=== PATIENT | male | born 1975 | race Two or more races ===

== ENCOUNTER → 2017-10-19 | Outpatient (REF) | payer OTHER ==
[2017-10-19 19:37] LABS: BACTERIA, URINE SMALL AMOUNT; HYALINE CAST, URINE NONE SEEN /lpf (0-1); MICROSCOPIC EXAM PERFORMED; RBC, URINE 30-40 /hpf (0-3); SQUAMOUS EPITHELIAL CELL URINE SMALL AMOUNT /hpf (SMALL AMT)
== END ==
LOC: M LAB REF 18:00
PROVIDERS: ATTEND Internal Medicine Nephrology
DX: N18.2 Chronic kidney disease, stage 2 (mild) (principal); Q61.2 Polycystic kidney, adult type

== ENCOUNTER → 2017-11-02 | Outpatient (CLI) | payer OTHER | LOC: M RAD 09:21 | DX: Q61.2 Polycystic kidney, adult type (principal); Q44.6 Cystic disease of liver; K76.89 Other specified diseases of liver | CPT/HCPCS: 76700 ==

== ENCOUNTER → 2017-11-27 | Outpatient (CLI) | payer OTHER ==
[2017-11-27 11:30] LABS: FREE T4 1.13 NG/DL (0.76-1.46)
== END ==
LOC: M LAB 10:28
DX: E89.0 Postprocedural hypothyroidism (principal)
CPT/HCPCS: 84443

== ENCOUNTER → 2018-01-26 | Outpatient (CLI) | payer OTHER | LOC: M RAD 07:15 | DX: M79.604 Pain in right leg (principal); M79.605 Pain in left leg; E89.0 Postprocedural hypothyroidism | CPT/HCPCS: 78315 ==

== ENCOUNTER → 2018-01-26 | Outpatient (CLI) | payer OTHER ==
[2018-01-26 12:19] LABS: FREE T4 0.62 NG/DL (0.76-1.46)
== END ==
LOC: M LAB 10:12
DX: E89.0 Postprocedural hypothyroidism (principal)

== ENCOUNTER → 2018-04-06 | Outpatient (CLI) | payer OTHER ==
[2018-04-06 14:55] LABS: FREE T4 1.18 NG/DL (0.76-1.46)
== END ==
LOC: M LAB 13:37
DX: E89.0 Postprocedural hypothyroidism (principal)
CPT/HCPCS: 84443

== ENCOUNTER → 2018-05-25 | Outpatient (REF) | payer OTHER ==
[2018-05-25 13:39] LABS: TOTAL PROTEIN,RANDOM URINE 15.5 MG/DL (0.0-12.0)
== END ==
LOC: M LAB REF 12:42
DX: Q61.2 Polycystic kidney, adult type (principal); N18.2 Chronic kidney disease, stage 2 (mild)

== ENCOUNTER → 2018-05-28 | Outpatient (CLI) | payer OTHER ==
[~2018-05-28] MED LIST: ISOVUE-370 76% 100ML VIAL (Q9967) As Ordered
== END ==
LOC: M RAD 15:07
DX: R91.8 Other nonspecific abnormal finding of lung field (principal); Q61.3 Polycystic kidney, unspecified
CPT/HCPCS: Q9967

== ENCOUNTER 2018-06-05 10:53 | Day surgery (SDC) | payer OTHER ==
[~2018-06-05 10:53] MED LIST changes: -ISOVUE-370 76% 100ML VIAL (Q9967) As Ordered; +LIDOCAINE 2% INJ 100 MG/5 ML SDV (FOR ANES.) As Ordered; +METOCLOPRAMIDE INJ 10MG/2ML VIAL (J2765) As Ordered; +MIDAZOLAM INJ 2 MG/2 ML VIAL (J2250) As Ordered; +ONDANSETRON 4MG/2ML VIAL (J2405) As Ordered; +PROPOFOL 200 MG/20 ML VIAL As Ordered; +ROCURONIUM BROMIDE 50 MG/5 ML VIAL As Ordered; +dexameTHASONE 4 MG/ML 1ML VIAL (J1100) As Ordered; +fentaNYL 100 MCG/2 ML INJECTION (J3010) As Ordered
[2018-06-05] MEDS: CETACAINE SPRAY 5GM As Ordered (12:51)
[2018-06-05] MEDS: LIDOCAINE 1% SDV INJ 30 ML VIAL As Ordered (13:49)
[2018-06-05] MEDS: LIDOCAINE 4% TOPICAL SOLN 50 ML BTL As Ordered (13:49)
[2018-06-05] MEDS: EPINEPHrine 1MG/10ML SYRINGE 1.5IN As Ordered (13:49)
[2018-06-05] MEDS: LIDOCAINE VISCOUS 2% SOLN 15ML UDC As Ordered (13:49)
[2018-06-05] MEDS: THROMBIN SOLN 5,000 UNITS VIAL As Ordered (13:49)
[2018-06-05] MEDS ORDERED: NORCO, ANEXSIA 5/325MG TABLET (HYDROcodone/ACETAMINOPHEN) PO (14:15)
[2018-06-05] MEDS ORDERED: LR 1,000 ML IV (14:15)
[2018-06-05] MEDS ORDERED: ONDANSETRON 4MG/2ML VIAL (J2405) IV (14:15)
[2018-06-05] MEDS ORDERED: fentaNYL 100 MCG/2 ML INJECTION (J3010) IV (14:15)
[2018-06-05] MEDS: ERYTHROMYCIN OPHTH OINT OD (15:45)
[2018-06-05 18:03] LABS: APPEARANCE CLOUDY (CLEAR); BAL DIFF IF INDICATED? NO (NO); BAL WBC 6.666 CELLS/uL (0-10); COLOR RED (COLORLESS); DILUTION FACTOR 1; SOURCE RIGHT UPPER LOBE; WBC BAL COUNTED 6
[2018-06-06] MEDS ORDERED: LR 1,000 ML IV (06:00)
== END 2018-06-05 15:40 | disposition home or self-care (01) ==
LOC: M SDC 10:53
DX: R91.1 Solitary pulmonary nodule (principal); G47.30 Sleep apnea, unspecified; E03.9 Hypothyroidism, unspecified; K21.9 Gastro-esophageal reflux disease without esophagitis; I10 Essential (primary) hypertension; Z79.899 Other long term (current) drug therapy
CPT/HCPCS: 31624

== ENCOUNTER → 2018-09-03 | Outpatient (CLI) | payer OTHER ==
[2018-09-03 17:11] LABS: CREATININE FOR GFR 1.29 MG/DL (0.70-1.30); GLOMERULAR FILTRATION RATE > 60.0 (>60)
[2018-09-03 17:11] LABS: BLOOD UREA NITROGEN 16 MG/DL (7-18)
== END ==
LOC: M LAB 16:13
DX: R91.8 Other nonspecific abnormal finding of lung field (principal)
CPT/HCPCS: 82565

== ENCOUNTER → 2018-09-05 | Outpatient (CLI) | payer OTHER ==
[~2018-09-05] MED LIST changes: +ISOVUE-370 76% 100ML VIAL (Q9967) As Ordered; -LIDOCAINE 2% INJ 100 MG/5 ML SDV (FOR ANES.) As Ordered; -METOCLOPRAMIDE INJ 10MG/2ML VIAL (J2765) As Ordered; -MIDAZOLAM INJ 2 MG/2 ML VIAL (J2250) As Ordered; -ONDANSETRON 4MG/2ML VIAL (J2405) As Ordered; -PROPOFOL 200 MG/20 ML VIAL As Ordered; -ROCURONIUM BROMIDE 50 MG/5 ML VIAL As Ordered; -dexameTHASONE 4 MG/ML 1ML VIAL (J1100) As Ordered; -fentaNYL 100 MCG/2 ML INJECTION (J3010) As Ordered
== END ==
LOC: M RAD 08:34
DX: R91.8 Other nonspecific abnormal finding of lung field (principal)

== ENCOUNTER 2019-08-11 03:16 | Emergency (ER) | payer OTHER ==
[~2019-08-11] VITALS: Ht 180.3 cm; Wt 97.7 kg
[~2019-08-11 03:16] MED LIST changes: +CITA20TA6 PO; -ISOVUE-370 76% 100ML VIAL (Q9967) As Ordered; +LEVO200T4 PO; +LEVO50TA5 PO; +MELA3TAB49 PO; +PROP80TA PO; +TELM1TAB PO; +VITA100067 PO
[2019-08-11] MEDS ORDERED: PREDOPD OD (03:25)
[2019-08-11] MEDS ORDERED: TRAV04OPD OD (03:25)
[2019-08-11] MEDS ORDERED: ACUV0.45 OP (03:25)
[2019-08-11] MEDS ORDERED: CIPRODEX AD (05:09)
[2019-08-11] MEDS ORDERED: CIPRODEX OTIC SUSP 7.5ML AD ONE (05:15)
[2019-08-11 05:41] VITALS: BP 150/85
== END 2019-08-11 05:52 | disposition home or self-care (01) ==
LOC: M ED 03:16
DX: H72.2X1 Other marginal perforations of tympanic membrane, right ear (principal); F17.200 Nicotine dependence, unspecified, uncomplicated; I10 Essential (primary) hypertension; G47.30 Sleep apnea, unspecified; Z88.6 Allergy status to analgesic agent; Z79.899 Other long term (current) drug therapy

== ENCOUNTER → 2019-11-08 | Outpatient (CLI) | payer OTHER ==
[~2019-11-08] MED LIST changes: +ACUV0.45 OP; +CIPRODEX AD; +ISOVUE-370 76% 100ML VIAL (Q9967) As Ordered ONE; +PREDOPD OD; +TRAV04OPD OD
--- NOTE | 2019-11-08 16:06 | REP ---
Clinical: Follow up abnormal findings. Technique: Axial contrast enhanced images from the thoracic inlet to the upper abdomen using 100 ml Isovue 370 intravenous contrast material with coronal and sagittal re-formations. Comparison: 09/05/2018. Findings: The ill-defined cavitary lesion in the right upper lobe has increased in size and demonstrates an irregular multi nodular contour with small satellite nodules and subtle surrounding air space disease. Mediastinal lymph nodes measure up to 16 mm. Findings are consistent with active disease including malignancy and infection. The bilateral lung jean are otherwise well aerated and clear. No effusion. No pneumothorax. Mediastinum demonstrates normal thoracic aorta, pulmonary vasculature and heart/pericardium. Surrounding musculoskeletal structures are intact. Limited upper abdomen with known polycystic kidney disease including enlarged polycystic changes to the liver. Impression: The cavitary lesion in the right upper lobe shows significant abnormal changes as described above. Differential diagnosis again includes malignancy and active infection including fungal disease. Electronically Signed by Georges Guadalupe MD 11/08/2019 03:57 P
== END ==
LOC: M RAD 14:59
PROVIDERS: ATTEND Internal Medicine Pulmonary Disease
DX: R91.8 Other nonspecific abnormal finding of lung field (principal)
CPT/HCPCS: 71260; Q9967

== ENCOUNTER → 2019-12-17 | Outpatient (CLI) | payer OTHER ==
[~2019-12-17] MED LIST changes: -ISOVUE-370 76% 100ML VIAL (Q9967) As Ordered ONE; -TELM1TAB PO; +TELM1TAB35 PO
--- NOTE | 2019-12-17 13:28 | REP ---
PET/CT: History: Diagnosing lung cancer. Right upper lobe abnormality. Comparisons: Comparison chest CT November 08, 2019. Comparison CT is also reviewed from September 05, 2018. TECHNIQUE: 50 minutes following the intravenous injection of a 7.05 mCi dose of F-18 FDG, three-dimensional PET scintigraphy is acquired from the skull base to the proximal thighs. Triplanar noncontrast CT scanning is acquired through the same anatomic range for attenuation correction, and image registration with scan parameters optimized to minimize radiation exposure to the patient. PET scintigraphy and CT datasets were fused and displayed on a workstation with multiplanar and projection display capability. PET/CT Findings: There is fairly prominent uptake in the oropharyngeal soft tissues and in the parotid gland soft tissues bilaterally. This can be normal variant. Head and neck soft tissues are otherwise unremarkable. The complex pulmonary parenchymal opacity in the posterior aspect of the right upper lobe shows hypermetabolic uptake predominantly in an annular circumferential pattern. Maximum standard uptake value is 8.97. No other pulmonary parenchymal hypermetabolic uptake is appreciated. There is however hypermetabolic bib uptake in the right hilus, maximum standard uptake value 5.14. There is precarinal adenopathy which is hypermetabolic as well, maximum standard uptake value 9.42. There is a small hypermetabolic bib focus in the superior mediastinum to the right of midline with maximum standard uptake value of 4.52. There is an equivocal bib focus of the right side of the thoracic inlet. In the abdomen and pelvis, there is evidence of polycystic kidney disease with multiple cysts in the kidneys and liver. No abnormal hypermetabolic uptake is seen within the liver or the kidneys. Normal splenic uptake is seen. Normal gastrointestinal uptake is observed. No abnormal adrenal uptake is observed. No abnormal uptake focus in the abdomen or pelvis. Impression: The complex soft tissue mass in the right upper lobe is hypermetabolic. Hypermetabolic adenopathy is seen in the right hilus and at several locations in the right mediastinum. Malignancy cannot be excluded. Chronic granulomatous disease is a possibility as well. Electronically Signed by Larry Perez MD 12/17/2019 07:59 P
== END ==
LOC: M PLARAD 07:39
PROVIDERS: ATTEND Internal Medicine Pulmonary Disease
DX: R59.0 Localized enlarged lymph nodes (principal); R91.8 Other nonspecific abnormal finding of lung field
CPT/HCPCS: 78815; A9552

== ENCOUNTER → 2019-12-20 | Outpatient (REF) | payer OTHER | LOC: M SFHCLERA 13:22 | PROVIDERS: ATTEND Nurse Practitioner Family | DX: R50.9 Fever, unspecified (principal) ==

== ENCOUNTER 2020-01-06 06:11 | Day surgery (SDC) | payer OTHER ==
[~2020-01-06] VITALS: Ht 175.3 cm; Wt 108.0 kg
[~2020-01-06 06:11] MED LIST changes: +BUSP15TA90 PO; +LEVO175T2 PO; +LEXA1TAB PO; +MELATAB2 PO; +PRAZ1CAP PO
[2020-01-06] MEDS ORDERED: MIDAZOLAM INJ 2 MG/2 ML VIAL (J2250) As Ordered ONE (06:41)
[2020-01-06] MEDS ORDERED: fentaNYL 250 MCG/5 ML INJECTION (J3010) As Ordered ONE (06:41)
[2020-01-06] MEDS ORDERED: ACETAMINOPHEN 1000MG 100ML IV BTL (OFIRMEV) (J0131 PER 10MG) As Ordered ONE (06:41)
[2020-01-06] MEDS ORDERED: SUGAMMADEX SODIUM 500 MG/5 ML VIAL (BRIDION) As Ordered ONE (06:42)
[2020-01-06] MEDS ORDERED: ROCURONIUM BROMIDE 50 MG/5 ML VIAL As Ordered ONE ×2 (06:42→08:16)
[2020-01-06] MEDS ORDERED: LIDOCAINE 2% INJ 100 MG/5 ML SDV (FOR ANES.) As Ordered ONE (06:42)
[2020-01-06] MEDS ORDERED: dexameTHASONE 4 MG/ML 1ML VIAL (J1100) As Ordered ONE ×2 (06:42→07:49)
[2020-01-06] MEDS ORDERED: ePHEDrine SULFATE 25 MG/5 ML(5MG/ML) SYRINGE As Ordered ONE (06:42)
[2020-01-06] MEDS ORDERED: propofoL 200 MG/20 ML VIAL As Ordered ONE (06:42)
[2020-01-06] MEDS ORDERED: ONDANSETRON 4MG/2ML VIAL (J2405) As Ordered ONE (06:42)
[2020-01-06] MEDS ORDERED: PHENYLephrine HCL 500 MCG/5 ML (100MCG/ML) SYRINGE (J2370) As Ordered ONE (06:42)
[2020-01-06 06:57] LABS: HEMATOCRIT 39.1 % (42.0-52.0); HEMOGLOBIN 12.9 g/dl (13.5-17.5); MEAN CORPUSCULAR HEMOGLOBIN 30.4 pg (27.0-33.0); MEAN CORPUSCULAR VOLUME 92.2 fl (80.0-96.0); PLATELET COUNT, AUTOMATED 245 10^3/uL (150-450); RED BLOOD COUNT 4.24 10^6/uL (4.30-6.10); WHITE BLOOD COUNT 5.5 10^3/uL (4.0-10.0)
[2020-01-06] MEDS ORDERED: THROMBIN SOLN 20,000 UNITS KIT As Ordered ONE (07:14)
[2020-01-06] MEDS ORDERED: LIDOCAINE 1% SDV INJ 30 ML VIAL As Ordered ONE (07:14)
[2020-01-06] MEDS ORDERED: EPINEPHrine 1MG/ML INJ 30ML MD-VIAL As Ordered ONE (07:14)
[2020-01-06] MEDS ORDERED: LIDOCAINE VISCOUS 2% SOLN 15ML UDC As Ordered ONE (07:14)
[2020-01-06] MEDS ORDERED: LIDOCAINE 4% TOPICAL SOLN 50 ML BTL As Ordered ONE (07:14)
[2020-01-06] MEDS ORDERED: CETACAINE SPRAY 5GM As Ordered ONE (07:16)
[2020-01-06 07:28] LABS: BLOOD UREA NITROGEN 15 MG/DL (7-18); CALCIUM LEVEL 9.4 MG/DL (8.5-10.1); CARBON DIOXIDE LEVEL 31 MEQ/L (21-32); CHLORIDE LEVEL 106 MEQ/L (98-107); CREATININE FOR GFR 1.47 MG/DL (0.70-1.30); GLOMERULAR FILTRATION RATE > 60.0 (>60); GLUCOSE, FASTING 93 MG/DL (70-100); POTASSIUM SERUM 3.9 MEQ/L (3.5-5.1); SODIUM LEVEL 140 MEQ/L (136-145)
[2020-01-06] MEDS ORDERED: EPINEPHrine 1MG/10ML SYRINGE 1.5IN As Ordered ONE (07:34)
[2020-01-06] MEDS ORDERED: KETOROLAC 60 MG/2 ML VIAL (J1885) As Ordered ONE (07:49)
--- NOTE | 2020-01-06 09:23 | REP ---
Single view chest x-ray: Partial exam. History: Abnormal x-ray. 3 minutes 30 seconds of fluoroscopy time is reported. Findings: A single fluoroscopically obtained spot radiograph of the chest documents bronchoscopic catheter position. Electronically Signed by Larry Perez MD 01/06/2020 09:15 A
[2020-01-06] MEDS ORDERED: HYDROMORPHONE HCL 0.5 MG/ 0.5 ML SYRINGE (J1170 PER 1) IV PRN (09:45)
[2020-01-06] MEDS ORDERED: fentaNYL 100 MCG/2 ML INJECTION (J3010) IV PRN (09:45)
[2020-01-06] MEDS ORDERED: oxyCODONE 5MG TAB PO PRN (09:45)
[2020-01-06] MEDS ORDERED: ONDANSETRON 4MG/2ML VIAL (J2405) IV PRN (09:45)
[2020-01-06] MEDS ORDERED: LR 1,000 ML IV SCH (09:45)
[2020-01-06 10:05] VITALS: BP 129/82
--- NOTE | 2020-01-06 10:10 | REP ---
Portable chest x-ray: Single view. History: Status post bronchoscopy. Findings: There is no evidence of pneumothorax or hydrothorax. There is a vague opacity in the right perihilar region again noted. Impression: No complication is seen. Electronically Signed by Larry Perez MD 01/06/2020 10:01 A
[2020-01-06 11:00] LABS: COLOR PINK (COLORLESS); SOURCE BRON ALVEOLAR LAVAGE
[2020-01-06 11:01] LABS: APPEARANCE HAZY (CLEAR)
--- NOTE | 2020-01-06 21:25 | ECGEPIP ---
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
--- NOTE | 2020-01-07 09:15 | RO ---
DATE OF PROCEDURE: 01/06/2020 PREOPERATIVE DIAGNOSIS: Right upper lobe cavitary lung mass. POSTOPERATIVE DIAGNOSIS: Right upper lobe cavitary lung mass with no endobronchial disease appreciated. PROCEDURE PERFORMED: Fiberoptic bronchoscopy with navigational imaging for biopsy and endobronchial ultrasound for lymph node aspiration. SURGEON: Jordy Roy DO CHANGE NUMBER OPERATOR: ANESTHESIA: The findings included no endobronchial disease, mild prominence of mucus grubbs. DESCRIPTION OF PROCEDURE: The patient was seen and the procedure explained to the patient, as were all of the possible complications pertaining thereto, including but not limited to bleeding, infection, medication reaction, and lung collapse. An informed consent was obtained and placed in the chart. The patient was brought to the operative suite, placed under general anesthetic. When anesthetic had had sufficient time to take effect, the bronchoscope was placed in through the endotracheal tube and into the trachea. The leigh ann was found to be sharp. Airways of the left and right lung were examined in the subsegmental fashion for any evidence of tumor, ulcer, necrosis, vessel engorgement, or mucosal irregularity. There was mild hypertrophy with mucus pits. Some mucus was suctioned free. The airways were felt to be essentially normal. Bronchoscope was then brought into the upper trachea and the navigational probe placed into the bronchoscope. Registration was performed and was successful. Thereafter, using the navigation software, the bronchoscope was placed into the right upper lobe, and the working channel was passed to the lesion previously appreciated on CAT scan. Once the working channel was in place, multiple cytology brushes were performed. A needle aspiration was performed of the right upper lobe. Thereafter, multiple biopsies were performed, followed by a second brushing and washing of the site. When sufficient sample had been obtained, the working channel was removed, the airways were lavaged free of any secretions, and an endobronchial ultrasound scope was inserted identifying the right perihilar lymph node appreciated on CT and PET scan. Multiple passes were made with a 22-gauge needle for aspiration. The node was found to be quite firm, and aspiration was difficult. However, with persistence, significant samples were aspirated, and the endobronchial ultrasound scope was removed. Thereafter, a standard bronchoscope was introduced once again. The airways were once again reviewed, lavaged free of any remaining blood or secretions, and the bronchoscope was removed. The patient was then reversed on anesthesia and will be brought shortly to the recovery room. He is left in stable condition. There were no apparent complications. MTDD
== END 2020-01-06 10:36 | disposition home or self-care (01) ==
LOC: M SDC 06:11 → EEVIPCON 06:11 → M SDC 10:36
PROVIDERS: ATTEND Internal Medicine Pulmonary Disease
DX: R91.8 Other nonspecific abnormal finding of lung field (principal); I10 Essential (primary) hypertension; E03.9 Hypothyroidism, unspecified; K21.9 Gastro-esophageal reflux disease without esophagitis; M10.9 Gout, unspecified; F41.9 Anxiety disorder, unspecified; F32.9 Major depressive disorder, single episode, unspecified; F43.10 Post-traumatic stress disorder, unspecified; Z79.899 Other long term (current) drug therapy; Z88.8 Allergy status to other drugs, medicaments and biological substances
CPT/HCPCS: 31623; 31624; 31627; 31628; 31629; 31652; 36415; 71045; 76000; 80048; 85027; 87070; 87077; 87102; 87116; 87186; 87205; 87206; 88104; 88108; 88173; 88305; 88312; 88313; 89050; 93005; J0131; J1100; J2250; J2370; J2405; J3010

== ENCOUNTER → 2020-02-17 | Outpatient (CLI) | payer OTHER ==
[~2020-02-17] MED LIST changes: +ISOVUE-370 76% 100ML VIAL (Q9967) As Ordered ONE
--- NOTE | 2020-02-17 09:52 | REP ---
Clinical: Abnormal lung findings. Comparison: 11/08/2019. Technique: Axial contrast enhanced images from the thoracic inlet to the upper abdomen with coronal and sagittal re-formations using 75 ml Isovue 370 intravenous contrast material. Findings: The somewhat irregular rounded and possibly cavitary multinodular area of mass / consolidation involving the right upper lobe and associated mediastinal/right hilar adenopathy appears relatively similar to prior examination. Recent PET-CT dated 12/17/2019 described hypermetabolic activity suggesting an active process including malignancy versus possible granulomas disease. Remainder of lung jean are well-aerated and essentially clear. No new significant lesion is otherwise identified. No pleural effusion. No pneumothorax. Mediastinum demonstrates normal thoracic aorta, pulmonary vasculature and heart/pericardium. Limited upper abdomen again demonstrates congenital polycystic disease diffusely involving the bilateral kidneys and liver. Impression: 1. Irregular area of mass / consolidation with multinodular rim and associated mediastinal/right hilar adenopathy is again noted and similar to 11/08/2019. Active pathology including malignancy and granulomas disease cannot be excluded. 2. Known congenital polycystic disease diffusely involving liver and kidneys. Electronically Signed by Georges Guadalupe MD 02/17/2020 09:42 A
== END ==
LOC: M RAD 08:17
PROVIDERS: ATTEND Internal Medicine Pulmonary Disease
DX: R91.8 Other nonspecific abnormal finding of lung field (principal); Q61.2 Polycystic kidney, adult type; Q44.6 Cystic disease of liver
CPT/HCPCS: 71260; Q9967

== ENCOUNTER → 2020-03-19 | Outpatient (CLI) | payer OTHER ==
[~2020-03-19] MED LIST changes: -ISOVUE-370 76% 100ML VIAL (Q9967) As Ordered ONE
[2020-03-19 13:58] LABS: HEMATOCRIT 40.8 % (42.0-52.0); HEMOGLOBIN 13.7 g/dl (13.5-17.5); MEAN CORPUSCULAR HEMOGLOBIN 30.9 pg (27.0-33.0); MEAN CORPUSCULAR HGB CONC 33.6 g/dl (32.0-36.5); MEAN CORPUSCULAR VOLUME 91.9 fl (80.0-96.0); PLATELET COUNT, AUTOMATED 201 10^3/uL (150-450); RED BLOOD COUNT 4.44 10^6/uL (4.30-6.10); WHITE BLOOD COUNT 4.8 10^3/uL (4.0-10.0)
[2020-03-19 14:01] LABS: APPEARANCE, URINE CLEAR (CLEAR); BACTERIA, URINE AUTO NEGATIVE (NEGATIVE); BILIRUBIN, URINE AUTO NEGATIVE (NEGATIVE); BLOOD, URINE BLOOD NEGATIVE (NEGATIVE); COLOR, URINE YELLOW (YELLOW); GLUCOSE, URINE (UA) AUTO NEGATIVE (NEGATIVE); KETONE, URINE AUTO NEGATIVE (NEGATIVE); LEUKOCYTE ESTERASE, URINE AUTO NEGATIVE (NEGATIVE); NITRITE, URINE AUTO NEGATIVE (NEGATIVE); PROTEIN, URINE AUTO NEGATIVE (NEGATIVE); RBC, URINE AUTO 1 /HPF (0-3); SPECIFIC GRAVITY URINE AUTO 1.014 (1.002-1.035); SQUAMOUS EPITHELIAL CELL UR AU 0 /HPF (0-6); UROBILINOGEN, URINE AUTO 0.2 mg/dL (0.0-2.0); WBC, URINE AUTO 2 /HPF (0-3)
[2020-03-19 14:16] LABS: INR 1.05; PROTHROMBIN TIME 13.4 SECONDS (11.8-14.0)
[2020-03-19 14:17] LABS: PARTIAL THROMBOPLASTIN TIME 29.5 SECONDS (25.0-38.4)
[2020-03-19 14:25] LABS: BLOOD UREA NITROGEN 18 MG/DL (7-18); CALCIUM LEVEL 9.3 MG/DL (8.5-10.1); CARBON DIOXIDE LEVEL 33 MEQ/L (21-32); CHLORIDE LEVEL 107 MEQ/L (98-107); CREATININE FOR GFR 1.45 MG/DL (0.70-1.30); GLOMERULAR FILTRATION RATE > 60.0 (>60); GLUCOSE, FASTING 92 MG/DL (70-100); POTASSIUM SERUM 4.3 MEQ/L (3.5-5.1); SODIUM LEVEL 142 MEQ/L (136-145)
[2020-03-19 14:25] LABS: ABG BASE EXCESS 1.4 (-2.0-2.0); ABG O2 SATURATION 97.9 % (95.0-99.0); ABG PARTIAL PRESSURE CO2 41.3 mmHg (35.0-45.0); ABG PARTIAL PRESSURE O2 104.2 mmHg (75.0-100.0); ABG STANDARD HCO3 25.7 MEQ/L (22.0-26.0); ABG TOTAL CO2 27.3 MEQ/L (22.0-29.0); ABG pH (ARTERIAL) 7.417 UNITS (7.350-7.450)
--- NOTE | 2020-03-19 18:18 | ECGEPIP ---
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
--- NOTE | 2020-03-20 01:40 | REP ---
Clinical: Shortness of breath. Technique: PA and lateral. Comparison: 01/06/2020. Findings: Opacity in the right upper lobe is again identified. No further consolidation, effusion, or pneumothorax. Mediastinum and cardiac silhouette are normal. Skeletal structures are intact. Impression: Area of opacity in the right upper lobe again noted. Electronically Signed by Georges Guadalupe MD 03/20/2020 01:31 A
== END ==
LOC: M ADMPAT 13:20
PROVIDERS: ATTEND Thoracic Surgery (Cardiothoracic Vascular Surgery)
DX: R91.8 Other nonspecific abnormal finding of lung field (principal)

== ENCOUNTER → 2020-03-24 | Outpatient (CLI) | payer OTHER | LOC: M LABSMTC 12:00 | PROVIDERS: ATTEND Anesthesiology | DX: Z01.818 Encounter for other preprocedural examination (principal); Z11.59 Encounter for screening for other viral diseases ==

== ENCOUNTER → 2020-04-16 | Outpatient (CLI) | payer OTHER ==
[~2020-04-16] MED LIST changes: +ESCI20TA PO; +FOLI1TAB11 PO; +ONDA8TAB10 PO; +PROC10TA4 PO
--- NOTE | 2020-04-21 21:43 | RADONC ---
RADIATION ONCOLOGY CONSULTATION NOTE DATE: 04/16/2020 This is a telemedicine visit. The patient was informed of the risks including security breech, technological failure, inability to perform a comprehensive physical exam which could delay or prevent an accurate diagnosis, and potential complications from treatment decisions rendered over a telemedicine platform. The patient understands and consented to the use of telehealth services phone only. CHART NUMBER: [id number] DIAGNOSIS: Right upper lobe lung cancer. STAGE: IIIA, T2b, N2, M0. ECOG PERFORMANCE STATUS: 0. CONSULTATION NOTE: Mr. 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 Of note, the patient and his report that he is moving to [place], [place] within the next 3-4 weeks, and he has relatives down there. He is scheduled to see medical oncology tomorrow. HISTORY OF PRESENT ILLNESS: The patient has been followed for an irregular cavitary lesion in his right upper lobe at least since 04/28/2018. At that time, he was found to have a 3.[address] scan. A bronchial brushing was taken on 06/05/2018, which showed no evidence of malignancy. This was repeated on June 06 including a transbronchial biopsy of his right upper lobe and again no atypia or malignancy was identified and no granulomatous inflammation was seen. He has been followed for this with a repeat CT scan done on 11/08/2019, again showing the cavitary lesion in the right upper lobe with a differential diagnosis including active infection versus fungal disease. On 12/17/2019, the patient underwent a PET scan, which showed hypermetabolic uptake in the right upper lobe. There was hypermetabolic uptake seen in the right hilum, as well as several locations in the right mediastinum. Malignancy could not be excluded, although chronic granulomatous disease was possible as well. On 03/27/2020, the patient underwent a mediastinal lymph node biopsy and pathology confirmed a poorly differentiated metastatic non-small cell carcinoma consistent with adenocarcinoma. The patient is now presenting to me to discuss the possibility of combined radiation therapy with chemotherapy, although he has confirmed that he is moving to [place] within the next few weeks. PAST MEDICAL HISTORY: The patient's past medical history is positive for glaucoma. He has a history of hyperthyroidism and had radio ablation in the past. He now has hypothyroidism. 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 He was on INH for 8 months in 2000 at the age of 25. He has had right knee surgery and wisdom teeth extraction. ALLERGIES: The patient is allergic to ASPIRIN. SOCIAL HISTORY: The patient does not smoke cigarettes. He drinks alcohol occasionally. FAMILY HISTORY: The patient's family history is negative for lung cancers or other malignancies. REVIEW OF SYSTEMS: The patient's review of systems noncontributory. He denies nausea, vomiting, fevers, chills, night sweats, diplopia, headaches, anxiety or depression, anorexia, weight loss, visual disturbances, chest pain, urinary or bowel difficulties, bone pain, or neurological problems. PHYSICAL EXAMINATION: Physical examination was deferred at this point as per COVID-19 precautions. This was a telephone consultation. ASSESSMENT: I had a very lengthy discussion with this patient with regards to his options. He is scheduled to see medical oncology tomorrow. I explained to the patient and his quite clearly that if he begins radiation here, he needs to commit to being here at least 2 months and the course of treatment would be roughly 7 weeks plus at least a week to allow for insurance authorization, treatment, CT simulation and treatment planning, as well as coordination for concomitant chemotherapy. The patient reports that he has family in [place] that he can stay with. In light of the fact that he will be living in [place] for an extended period, and his followup treatment and everything can be done there, I have strongly recommended that he expedite his trip down there. We had lengthy discussions, and the patient is presently retired and has a place to stay in [place]. I have strongly recommended that he obtain a physician, go down there, be seen, consulted, and treatment planning can begin, so that treatment can be expedited. The patient is scheduled to see our medical oncologist, Dr. Jeremias Hankins, tomorrow, and I have already spoke with Dr. Hankins. There is the possibility if for some reason the patient refuses to go down early to [place] that Dr. Hankins can initiate neoadjuvant chemotherapy at least one cycle but perhaps even two cycles before going down to [place]. The third option for this patient is to stay here for the next several months. This discussion went on for quite some time. In addition, the patient and his were talking about going to [place] to visit family before going to [place]. I strongly pushed against this as this would delay treatment. They asked me if we could start radiation here and then later move to [place] in the middle of treatment and be seen there and have the second half of treatment there. Clearly this would not be possible. In summary, the patient was given three options after a very lengthy discussion. The first option, which I think is the most reasonable, is since he is not working at this time and has a place to stay, is to have his records sent to the cancer center in [place] and begin the process there. In the meantime, his can join him in a couple of weeks. The second option, of course, is to initiate systemic therapy here so that at least some treatment is going on before his move there in 3 or 4 weeks. The final option is if he makes a decision to stay here but that seems the least reasonable. He has family in [place]. He has a place to stay in [place]. His is being transferred to [place]. He will be remaining in [place] for followup and further treatment, ie: subsequent chemotherapy, blood work, post-treatment scanning and everything will be done there. It is much more reasonable to have the whole process done there. In light of this, I have not scheduled the patient for anything in our department. I gave the patient my cell phone number and office number if I could be of any assistance in the meantime. I made clear that I have worked closely with Dr. Hankins and have hien in his opinion, which the patient will be seeking tomorrow as well. cc: [facility] MD Jeremias Najera MD Stephen Vogel, MD MTDD
== END ==
LOC: M ONCR 09:09
PROVIDERS: ATTEND Radiology Radiation Oncology
DX: C34.11 Malignant neoplasm of upper lobe, right bronchus or lung (principal)